=== PATIENT | female | born 1965 | race African-American/Black ===

== ENCOUNTER 2017-11-20 17:01 | Emergency (ER) | payer OTHER ==
[~2017-11-20] VITALS: Ht 162.6 cm; Wt 82.0 kg
[2017-11-20 18:20] LABS: BASOPHILS % 0.7 % (0.0-2.0); EOSINOPHILS % 9.2 % (0.0-5.0); HEMATOCRIT. 39.4 % (36.0-48.0); HEMOGLOBIN. 13.7 g/dL (12.0-16.0); LYMPHOCYTES % 33.5 % (20.0-50.0); MEAN CORPUSCULAR HEMOGLOBIN 35.2 pg (28.0-32.0); MEAN CORPUSCULAR VOLUME 101.3 fL (81.0-99.0); MEAN PLATELET VOLUME 8.6 fl (7.4-10.4); MONOCYTES % 8.1 % (2.0-8.0); NEUTROPHILS % 48.5 % (40.0-76.0); PLATELET 308 x1000/uL (130-400); RED BLOOD CELL COUNT 3.89 mill/uL (4.2-5.4)
[2017-11-20 18:26] LABS: CHLORIDE 105 mEq/L (98-107)
[2017-11-20] MEDS ORDERED: ASPIRIN 81MG TABLET PO ONE (18:45)
[2017-11-20] MEDS ORDERED: NITROGLYCERIN OINT 1GM/INCH UDPKT TD ONE (18:45)
[2017-11-20] MEDS ORDERED: MORPHINE SULFATE 4 MG/ML CPJ (NOT FOR IM USE) IV ONE (18:45)
[2017-11-20 21:43] VITALS: BP 137/91
== END 2017-11-20 22:09 | disposition left against medical advice (07) ==
LOC: ER 17:20
DX: R07.89 Other chest pain (principal); I10 Essential (primary) hypertension; E11.9 Type 2 diabetes mellitus without complications; I25.10 Atherosclerotic heart disease of native coronary artery without angina pectoris; I25.2 Old myocardial infarction; E78.00 Pure hypercholesterolemia, unspecified
CPT/HCPCS: 36415; 71045; 80053; 84484; 85025; 85610; 93005; 96374; 99285; J2270; Z7610